=== PATIENT | female | born 1960 | race Caucasian/White ===

== ENCOUNTER 2022-03-27 17:13 | Emergency (ER) | payer OTHER ==
[2022-03-27] MEDS ORDERED: Lidocaine 1% 5 ML VIAL INJECT ONE (17:45)
[2022-03-27] MEDS ORDERED: Diphtheria,Pertussis(Acell),Tetanus Vaccine 0.5 ML Syringe IM ONE (17:47)
[2022-03-27] MEDS ORDERED: Bacitracin/Neomycin/Polymyxin B Oint 0.9 GM U/D Packet TOP ONE (18:05)
[2022-03-27] MEDS ORDERED: Take Home: Cephalexin 500 MG Cap, 4 Cap Pack PO ONE (18:10)
== END 2022-03-27 18:43 | disposition home or self-care (01) ==
LOC: CC.ED 17:13
DX: S62.622B Displaced fracture of middle phalanx of right middle finger, initial encounter for open fracture (principal); Z88.2 Allergy status to sulfonamides; Z23 Encounter for immunization; W01.0XXA Fall on same level from slipping, tripping and stumbling without subsequent striking against object, initial encounter; Y93.01 Activity, walking, marching and hiking
CPT/HCPCS: 26770; 73140-F7; 90471; 90715; 99283-25; A9270-GY